=== PATIENT | female | born 1970 | race Caucasian/White ===

== ENCOUNTER 2020-04-09 20:10 | Emergency (ER) | payer BC ==
[~2020-04-09] VITALS: Ht 167.6 cm; Wt 69.5 kg
[~2020-04-09 20:10] MED LIST: PRISTIQ 50 MG T50 MG PO; XANAX .25M0.25 MG/TA PO
[2020-04-09 20:34] VITALS: BP 124/84; PULSE 86; TEMP 97.2
[2020-04-09] MEDS ORDERED: PRISTIQ100 MG PO (21:37)
[2020-04-09] MEDS ORDERED: TALTZ AUTO80 MG/1 ML SQ (21:38)
[2020-04-09] MEDS ORDERED: CEPHALEXIN500 M1 PO (21:39)
== END 2020-04-09 22:19 | disposition home or self-care (01) ==
LOC: COL.ER 20:10
DX: S61.313A Laceration without foreign body of left middle finger with damage to nail, initial encounter (principal); F32.9 Major depressive disorder, single episode, unspecified; F17.210 Nicotine dependence, cigarettes, uncomplicated; W27.8XXA Contact with other nonpowered hand tool, initial encounter; Y92.009 Unspecified place in unspecified non-institutional (private) residence as the place of occurrence of the external cause

== ENCOUNTER → 2021-01-22 | Outpatient (CLI) | payer BC ==
[2005-11-28 07:15] VITALS: TEMP 97.6
[~2021-01-22] MED LIST changes: +CEPHALEXIN500 M1 PO; +PRISTIQ100 MG PO; +TALTZ AUTO80 MG/1 ML SQ
== END ==
LOC: COL.RAD 09:18
DX: E04.2 Nontoxic multinodular goiter (principal); R10.2 Pelvic and perineal pain; Z90.710 Acquired absence of both cervix and uterus; Z80.1 Family history of malignant neoplasm of trachea, bronchus and lung